=== PATIENT | female | born 1965 | race Caucasian/White ===

== ENCOUNTER 2022-01-03 12:00 | Emergency (ER) | payer OTHER, SELFPAY ==
[2022-01-03 12:13] VITALS: BP 127/85; PULSE 69; RESP 16; TEMP 37; O2SAT 98; BMI 24.3
--- NOTE | 2022-01-03 12:31 | W.ED.ABDPA2 ---
HPI - Abdominal Pain General: Chief Complaint: Abdominal Pain Stated Complaint: chest and abdomen pain, n/v Time Seen by Provider: 01/03/22 12:30 Source: patient Mode of arrival: ambulatory Limitations: no limitations History of Present Illness: 56-year-old female presents emergency room complaining of chest and abdominal pain. Began last night epigastric pain radiates up into the chest a little bit she had lots of nausea vomiting and diarrhea with that same time persisted throughout the night was persistent epigastric discomfort she also has little bit of left lower quadrant discomfort and pain now. She denied any hematochezia melena hematemesis coffee-ground emesis. No dysuria urgency or frequency no fever sweats or chills. She called her doctor's office they called in some ondansetron for her she took 1 tablet of that it significantly improved her nausea but did not relieve her pain. Failure previous abdominal surgery she has had is a hysterectomy. MD elicited complaint: abdominal pain Pertinent past history: none Onset (ago): hour(s) Pain Consistency: intermittent Location: Epigastric Severity: mild Quality: cramping Associated Symptoms: Denies bloating, chills, coffee ground emesis, constipation, diarrhea, dysuria, fever(s), hematochezia, hematemesis, melena, nausea and vomiting Review of Systems Const: Denies: fever(s), chills, body aches, change in appetite, fatigue or malaise ENMT: Denies: throat pain, ear or mastoid pain, nasal discharge or nasal congestion Card: Denies: chest pain, edema, dyspnea on exertion or orthopnea Resp: Denies: dyspnea, productive cough or non-productive cough GI: Denies: abdominal pain, nausea, vomiting, hematemesis, coffee ground emesis, diarrhea, constipation, bloating, hematochezia or melena : Denies: flank pain, difficulty voiding, dysuria, urinary frequency or urinary urgency Skin/Breast: Denies: rash or pruritus PFSH ED PFSH: Surgical History (Updated 01/10/22 @ 14:18 by Pablo Ely DO) History of breast biopsy History of colonoscopy History of hysterectomy History of tubal ligation Social History Smoking and tobacco status: never smoked Physical Exam Const: GENERAL APPEARANCE: cooperative and comfortable ORIENTATION/CONSCIOUSNESS: Yes awake, Yes oriented to person, Yes oriented to place and Yes oriented to time HENMT: COMMON NORMALS: normocephalic, atraumatic and hearing grossly normal bilaterally HEAD & SCALP: normocephalic and atraumatic Neck/C-Spine: COMMON NORMALS: no JVD Resp: COMMON NORMALS: normal respiratory effort, No retractions, No use of accessory muscles and clear to auscultation bilaterally AUSCULTATION: clear to auscultation bilaterally Cardio: COMMON NORMALS: no JVD, regular rate, regular rhythm and No murmurs present (Cardio) RATE: regular rate RHYTHM: regular rhythm GI: COMMON NORMALS: No hepatosplenomegaly present AUSCULTATION: Yes normoactive bowel sounds PALPATION: Yes Tenderness to palpation present (GI) Details: RUQ, No Guarding due to palpation present (GI) and Yes No hepatosplenomegaly present Extremity: COMMON NORMALS: normal to inspection, capillary refill normal, no clubbing, cyanosis or edema, no calf tenderness and no pedal edema Neuro: SENSORIUM/ORIENTATION: Yes oriented to person, Yes oriented to place and Yes oriented to time Skin: COMMON NORMALS: no rashes or lesions noted GENERAL SKIN EXAM: no rashes or lesions noted Course Vital Signs: Vital signs: Vital Signs Temperature 98.6 F 01/03/22 12:13 Pulse Rate 61 01/03/22 13:43 Respiratory Rate 16 01/03/22 14:07 Blood Pressure 127/78 01/03/22 13:43 Pulse Oximetry 99 01/03/22 13:43 MDM - Abdominal Pain Medical Decision Making Suspect patient has biliary colic. Liver functions and COVID ultrasound unremarkable. Discharge patient home bland diet antiemetics pain medications and will have her get a follow-up with general surgery tomorrow. Medical Records I reviewed the patient's medical records. Lab Data I reviewed the patient's lab results. : 01/03/22 12:40 01/03/22 12:40 Labs/Radiology: Radiology Impressions Abdomen/Pelvis CT 01/03/22 14:01 IMPRESSION: 1. Abnormal gallbladder. Findings consistent with acute cholecystitis. Gallstones were previously described on a prior ultrasound from 2010. Gallbladder ultrasound would be beneficial in confirming findings. 2. No bile duct dilatation. 3. No free fluid. Gallbladder Ultrasound 01/03/22 15:32 IMPRESSION: 1. Findings of acute cholecystitis. Numerous stones within a markedly thickened gallbladder. Gallbladder wall is edematous also on the recent CT. Suspect these changes are related to acute on chronic cholecystitis. Due to the marked wall gallbladder wall thickening the possibility of a gallbladder neoplasm should also be considered. 2. Normal common bile duct. Laboratory Results WBC 8.4 10^3/uL (4.0-10.0) 01/03/22 12:40 RBC 4.66 10^6/uL (4.1-5.3) 01/03/22 12:40 Hgb 14.3 g/dL (11.5-15.3) 01/03/22 12:40 Hct 44.1 % (37.0-47.0) 01/03/22 12:40 MCV 94.6 fl (81-99) 01/03/22 12:40 MCH 30.7 pg (28.0-34.0) 01/03/22 12:40 MCHC 32.4 g/dL (30.0-36.0) 01/03/22 12:40 RDW 11.9 % (12.1-15.1) L 01/03/22 12:40 Plt Count 175 10^3/cmm (130-400) 01/03/22 12:40 MPV 10.4 fL (7.4-10.4) 01/03/22 12:40 Neut % (Auto) 90.3 % 01/03/22 12:40 Lymph % (Auto) 7.1 % 01/03/22 12:40 [place] % (Auto) 2.1 % 01/03/22 12:40 Eos % (Auto) 0.1 % 01/03/22 12:40 Baso % (Auto) 0.2 % 01/03/22 12:40 Neut # (Auto) 7.60 10^3/uL (1.8-7.7) 01/03/22 12:40 Lymph # (Auto) 0.6 10^3/uL (0.8-4.8) L 01/03/22 12:40 [place] # (Auto) 0.2 10^3/uL (0.2-0.9) 01/03/22 12:40 Eos # (Auto) 0.0 10^3/uL (0.0-0.8) 01/03/22 12:40 Baso # (Auto) 0.0 10^3/uL (0.0-0.1) 01/03/22 12:40 Nucleated RBC % (auto) 0 % 01/03/22 12:40 Nucleated RBCs # 0.0 /100WBC 01/03/22 12:40 Sodium 139 mmol/L (136-145) 01/03/22 12:40 Potassium 4.2 mmol/L (3.5-5.1) 01/03/22 12:40 Chloride 104 mmol/L (98-107) 01/03/22 12:40 Carbon Dioxide 25 mmol/L (22-29) 01/03/22 12:40 Anion Gap 14.2 (5-19) 01/03/22 12:40 BUN 12 mg/dL (6-20) 01/03/22 12:40 Creatinine 0.7 mg/dL (0.5-0.9) 01/03/22 12:40 GFR Calculation 86.2 mL/min (90-130) L 01/03/22 12:40 Glucose 124 mg/dL (65-115) H 01/03/22 12:40 Calculated Osmolality 289 mOsm/kg (285-295) 01/03/22 12:40 Calcium 9.2 mg/dL (8.5-10.5) 01/03/22 12:40 Total Bilirubin 0.3 mg/dL (0.15-1.2) 01/03/22 12:40 AST 16 U/L (0-32) 01/03/22 12:40 ALT 13 U/L (0-33) 01/03/22 12:40 Alkaline Phosphatase 65 IU/L (35-105) 01/03/22 12:40 Total Protein 7.5 g/dL (6.6-8.7) 01/03/22 12:40 Albumin 4.6 g/dL (3.5-5.2) 01/03/22 12:40 Globulin 2.9 g/dL (1.3-4.6) 01/03/22 12:40 Urine Color Yellow (Yellow) 01/03/22 12:45 Urine Appearance Clear (CLEAR) 01/03/22 12:45 Urine pH 8 (5-7) H 01/03/22 12:45 Ur Specific [place] 1.010 (1.005-1.030) 01/03/22 12:45 Urine Protein Neg (Negative) 01/03/22 12:45 Urine Glucose (UA) Norm (Normal) 01/03/22 12:45 Urine Ketones Negative (Negative) 01/03/22 12:45 Urine Blood Neg (Negative) 01/03/22 12:45 Urine Nitrate Negative (Negative) 01/03/22 12:45 Urine Bilirubin Neg (Negative) 01/03/22 12:45 Prot Sulfosalicylic Acd Negative (Negative) 01/03/22 12:45 Urine Urobilinogen Norm mg/dL (Negative) 01/03/22 12:45 Ur Leukocyte Esterase Negative (Negative) 01/03/22 12:45 Urine RBC 0-4 /hpf (0-2) H 01/03/22 12:45 Urine WBC None /hpf (0-5) 01/03/22 12:45 Ur Squamous Epith Cells 0-4 /hpf (0-5) H 01/03/22 12:45 Ur Transition Epith Cell None /hpf 01/03/22 12:45 Ur Renal Epithelial Cell N /hpf 01/03/22 12:45 Amorphous Sediment Not Reportable 01/03/22 12:45 Urine Bacteria None /hpf (NONE) 01/03/22 12:45 Urine Mucus 1+ /hpf 01/03/22 12:45 Discharge Plan Discharge Patient Disposition: Home Clinical Impression: Biliary colic Condition: Stable Prescriptions: New hydrocodone-acetaminophen 5-325 mg tablet 1 tab PO Q6H PRN (Reason: pain) Qty: 20 0RF promethazine 25 mg tablet 25 mg PO Q6H PRN (Reason: nausea and vomiting) Qty: 20 0RF No Action amoxicillin-pot clavulanate 875-125 mg tablet 1 tab PO Q12H Qty: 28 0RF estradiol 1 mg tablet 1 mg PO DAILY 0RF ondansetron 4 mg tablet,disintegrating 4 mg PO Q8H PRN (Reason: Nausea) 0RF albuterol sulfate 90 mcg/actuation Hfa Aerosol Inhaler 1 - 2 puff INHALATION QID PRN (Reason: Shortness Of Breath) 0RF Discharge Orders: Discharge ED (Routine); Ordered 01/03/22 Ordered By: Pablo Ely Referrals: Colin Trevizo DO [Physician] - (Dr. Trevizo is at the [facility] office [facility]) Patient Instructions: [place] Diet - Adult, Biliary Colic (ED), Gallstones (ED), Abdominal Pain (ED), Opioid Safety Activity Restrictions/Additional Instructions: You have an appointment with Dr. Trevizo at 1115 tomorrow January 04, [address] [facility] Coding Level of Care Code ED Sanitation Superintendent for Chg Traci
--- NOTE | 2022-01-03 12:32 | ECG_ITS ---
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 Measurements Intervals [place] Rate: 68 P: 77 OK: 145 QRS: 73 QRSD: 88 T: 45 QT: 408 QTc: 435 Interpretive Statements SINUS RHYTHM POSSIBLE RIGHT VENTRICULAR CONDUCTION DELAY [RSR (QR) IN V1/V2] No previous ECG available for comparison Electronically Signed On 01-03-2022 17:25:17 CDT by Wander Short M.D. [email or web address] Marketing and Researchwvumedicine [email or web address]/store/OM/[id number]
[2022-01-03] MEDS: sodium chloride 0.9% 1,000 ML 999 ML IV (12:52)
[2022-01-03] MEDS: ondansetron 2 mg/ML SDV 2 mL 4 MG IVP (12:52)
[2022-01-03 13:05] LABS: Basophils % 0.2 %; Eosinophils % 0.1 %; Hematocrit 44.1 % (37.0-47.0); Hemoglobin 14.3 g/dL (11.5-15.3); Lymphocytes # 0.6 10^3/uL (0.8-4.8); Lymphocytes % 7.1 %; Mean Corpuscular HGB Conc 32.4 g/dL (30.0-36.0); Mean Corpuscular Hemoglobin 30.7 pg (28.0-34.0); Mean Corpuscular Volume 94.6 fl (81-99); Mean Platelet Volume 10.4 fL (7.4-10.4); Monocytes # 0.2 10^3/uL (0.2-0.9); Monocytes % 2.1 %; Neutrophils % 90.3 %; Nucleated Red Blood Cells % 0 %; Platelet Count 175 10^3/cmm (130-400); Red Blood Count 4.66 10^6/uL (4.1-5.3); Red Cell Distribution Width 11.9 % (12.1-15.1); White Blood Count 8.4 10^3/uL (4.0-10.0)
[2022-01-03 13:18] LABS: Alanine Aminotransferase 13 U/L (0-33); Albumin Level 4.6 g/dL (3.5-5.2); Alkaline Phosphatase 65 IU/L (35-105); Anion Gap 14.2 (5-19); Aspartate Amino Transferase 16 U/L (0-32); Blood Urea Nitrogen 12 mg/dL (6-20); Calcium 9.2 mg/dL (8.5-10.5); Carbon Dioxide 25 mmol/L (22-29); Chloride 104 mmol/L (98-107); Globulin 2.9 g/dL (1.3-4.6); Glomerular Filtration Rate 86.2 mL/min (90-130); Glucose 124 mg/dL (65-115); Osmolality Calculated 289 mOsm/kg (285-295); Potassium 4.2 mmol/L (3.5-5.1); Sodium 139 mmol/L (136-145); Total Bilirubin 0.3 mg/dL (0.15-1.2); Total Protein 7.5 g/dL (6.6-8.7)
[2022-01-03 13:35] LABS: Urine Appearance Clear (CLEAR); Urine Color Yellow (Yellow)
[2022-01-03 13:43] VITALS: BP 127/78; PULSE 61; RESP 16; O2SAT 99
[2022-01-03 13:45] LABS: Bilirubin Urine Neg (Negative); Blood Urine Neg (Negative); Glucose Urine UA Norm (Normal); Ketones Urine Negative (Negative); Leukocyte Esterase Urine Negative (Negative); Nitrate Urine Negative (Negative); Protein Urine Neg (Negative); Urobilinogen Urine Norm (Negative); pH Urine 8 (5-7)
[2022-01-03 13:46] LABS: Add Urine Microscopic? YES; Sulfosalicylic Acid Urine Negative (Negative)
[2022-01-03 13:47] LABS: Mucus Urine 1+ /hpf; RBC Urine 0-4 /hpf (0-2); Renal Epithelial Cells Urine N /hpf; Squamous Epithelial Cell Urine 0-4 /hpf (0-5)
[2022-01-03 13:48] LABS: Add Urine Culture? No
--- NOTE | 2022-01-03 14:01 | CT_ITS ---
WS: [id number] CT ABDOMEN AND PELVIS NONCONTRAST HISTORY: abd pain TECHNIQUE: Imaging performed through the abdomen and pelvis. Coronal and sagittal reformats are submi tted. All CT scans at [facility] use at least one of these dose optimization techniques: auto mated exposure control; mA and/or kV adjustment per patient size (includes targeted exams where dose is matched to clinical indication); or iterative reconstruction. DLP: 1315.78 mGy.cm COMPARISON: 10/05/2010 Lower thorax: Lung bases are clear. Visualized heart is normal. No hiatal hernia. Liver: Normal size liver. No mass or bile duct dilatation. Gallbladder: Abnormal gallbladder. Diffuse wall thickening with mild adjacent inflammation. Variable density within the gallbladder suggesting stones. Pancreas: Normal size and attenuation. Normal pancreatic duct. No pancreatitis or mass. Spleen: Normal. Adrenal glands: Normal. No mass. Right kidney: Normal size kidney with no mass or hydronephrosis. Left kidney: Normal size kidney with no mass or hydronephrosis. Aorta: Normal abdominal aorta, no aneurysm or atherosclerosis. No free fluid, intraperitoneal air or significant lymphadenopathy. GI tract: Normal appendix. No GI tract obstruction or diverticulosis. Abdominal wall: Very small umbilical hernia. Pelvis: No mass or adenopathy. Osseous structures: Unremarkable. CT/CT abdomen pelvis wo con [id number] IMPRESSION: 1. Abnormal gallbladder. Findings consistent with acute cholecystitis. Gallsto anshu were previously described on a prior ultrasound from 2010. Gallbladder ultr asound would be beneficial in confirming findings. 2. No bile duct dilatation. 3. No free fluid.
[2022-01-03 14:07] VITALS: RESP 16
[2022-01-03] MEDS: morphine 4 mg/mL SDV 1 mL IVP ×2 (14:07→16:33)
--- NOTE | 2022-01-03 15:32 | US_ITS ---
WS: [id number] RIGHT UPPER QUADRANT ULTRASOUND HISTORY: RUQ abd pain, cholelithiasis COMPARISON: 10/05/[address] 01/03/2022 Liver: 13.2 cm in length. Normal size liver. No bile duct dilatation or mass. Portal Vein: Normal hepatopetal flow with monophasic waveform. Gallbladder: Markedly abnormal gallbladder. There is diffuse wall thickening with a few cystic areas and fluid within the wall. The central gallbladder is contracted with numerous stones. Gallbladder wa ll thickening measures up to 1.6 cm. CBD: 0.4 cm Pancreas: Normal size and echogenicity. Right kidney: 10.5 cm in length. Normal size and echogenicity. No hydronephrosis or mass. Aorta and IVC: Unremarkable abdominal aorta and IVC. No ascites. US/US gall bladder [id number] IMPRESSION: 1. Findings of acute cholecystitis. Numerous stones within a markedly thickene d gallbladder. Gallbladder wall is edematous also on the recent CT. Suspect the se changes are related to acute on chronic cholecystitis. Due to the marked wal l gallbladder wall thickening the possibility of a gallbladder neoplasm should also be considered. 2. Normal common bile duct.
== END 2022-01-03 17:03 | disposition home or self-care (01) ==
PROVIDERS: Emergency Provider Family Medicine; PCP Family Medicine
DX: K80.66 Calculus of gallbladder and bile duct with acute and chronic cholecystitis without obstruction (principal); Z79.890 Hormone replacement therapy; Z79.891 Long term (current) use of opiate analgesic
CPT/HCPCS: 74176; 76705; 80053; 81001; 85025; 93005; 96361; 96374; 96375; 96376; 99285; J2270; J2405; J7030

== ENCOUNTER 2022-02-28 10:30 | Day surgery (SDC) | payer BC, SELFPAY ==
[2022-02-24 11:01] VITALS: BMI 23.6
[2022-02-28] VITALS (8 sets, daily range): BP systolic 96–123; BP diastolic 55–79; PULSE 52–75; RESP 14–20; TEMP 36.1–36.6; O2SAT 93–100
[2022-02-28] MEDS: sodium chloride 0.9% 1,000 ML 30 ML IV (11:02)
--- NOTE | 2022-02-28 11:05 | W.PM.OPSUD ---
Surgery/Procedure H&P Update DATE OF PROCEDURE: February 28, 2022 DATE H&P PERFORMED: 02/10/22 CHANGES TO PREVIOUS DOCUMENTATION: none PREOP DIAGNOSIS: Chronic Cholecystitis PLANNED PROCEDURE: Operation Date: 02/28/22 12:20 Proposed Procedures p lap tramaine 02890/K81.2(Not Applicable) - Colin Trevizo DO
--- NOTE | 2022-02-28 12:36 | ANES.PREANE2 ---
Pre-Anesthetic Assessment Height/Weight: Height 1.73 m Weight 70.307 kg Temp Pulse Resp BP Pulse Ox 97.1 F L 75 18 121/79 98 02/28/22 10:46 02/28/22 10:46 02/28/22 10:46 02/28/22 10:46 02/28/22 10:46 Preop Diagnosis: Chronic Cholecystitis Operation Date: 02/28/22 12:20 Proposed Procedures p lap tramaine 02320/K81.2(Not Applicable) - Colin Trevizo DO Familial anesthetic complications: None Was Beta Heather taken within 24 hours: N/A Was Clonidine taken within 24 hours: N/A Last intake: Intake Last Liquid Date 02/27/22 Last Liquid Time 21:00 Last Solid Date 02/27/22 Last Solid Time 21:00 Social No alcohol and No tobacco Exam alert, oriented x 3, clear to auscultation bilaterally and regular rate & rhythm Airway Mallampati: Class II Dentition: full GI cholecystitis Anesthetic Plan ASA status: 2 Anesthesia: General Risk of > 500 ml blood loss (7ml/kg in children): No Medications/Allergies Home Medications Medication Instructions Recorded Confirmed Last Taken Type hydrocodone 5 mg-acetaminophen 325 1 tab PO Q6H PRN #20 tab 01/03/22 02/28/22 01/10/22 Rx mg tablet fluticasone propionate 50 1 spray INTRANASAL ONCE g 02/10/22 02/28/22 02/27/22 History mcg/actuation nasal spray,suspension (Children's Flonase Allergy Relief) Allergies Allergy/AdvReac Type Severity Reaction Status Date / Time No Known Allergies Allergy Verified 02/28/22 10:39 Current Medications Generic Name Dose Route Start Last Admin Trade Name Freq PRN Reason Stop Dose Admin Sodium Chloride 1,000 mls @ 30 mls/hr 02/28/22 10:45 02/28/22 11:02 Sodium Chloride 0.9% IV 03/01/22 10:44 30 mls/hr .Q24H LARISA Administration PFSH Anesthesia Surgical History History of breast biopsy History of colonoscopy History of hysterectomy History of tubal ligation Social History Smoking and tobacco status: never smoked Data Anesthesia Cardiac Studies: No Data to Display
--- NOTE | 2022-02-28 13:48 | P.OP_ITS ---
Operative Report Date of procedure: February 28, 2022 Pre-op diagnosis: Preop Diagnosis Chronic Cholecystitis Post-op diagnosis: same Procedure done: Laparoscopic cholecystectomy Specimens removed/disposition: Gallbladder Surgeon: Dr. Colin Trevizo DO Estimated blood loss: 5 Complications: None apparent Brief History: 56-year-old female diagnosed with chronic cholecystitis. Laparoscopic cholecystectomy is indicated. Risks and benefits were explained and documented Procedure: Patient was wheeled into the operative room and placed on the OR table in a supine position. Abdomen was inspected prepped and draped in usual sterile fashion. Time-out was performed and all present were in agreement. A 15 blade scalp was used to make a stab incision in the left upper quadrant and intra- abdominal insufflation was achieved using a Veress needle. After localizing the tissue incisions were made and a 5 millimeter trocar was placed into the umbilicus as well as 2 in the right upper quadrant. A 12 millimeter trocar was placed in the epigastrium. Gallbladder was grasped and elevated. The triangle of [place] was carefully dissected using blunt dissection and electrocautery until the triangle of [place] clearly identified. The cystic duct was clipped proximally and double clipped distally. The duct was then ligated proximally. The cystic artery was doubly clipped and ligated. The gallbladder was then re moved from the liver bed using electrocautery. The gallbladder was removed from the abdomen using an Endo-Catch bag through the epigastric incision. The liver bed was inspected and no bleeding was seen. The abdomen was irrigated and suctioned. All ports removed. Skin was washed and dried. Incisions were closed with 3-0 and 4-O Vicryl in a subcuticular interrupted fashion. Skin glue was applied. Patient tolerated the procedure well.
--- NOTE | 2022-02-28 14:40 | ANE.PACU2 ---
Inpatient post-anesthesia follow up: Airway intact: Yes Vital signs: Temperature 97.0 F Pulse Rate 52 Respiratory Rate 16 Blood Pressure 122/74 Pulse Oximetry 96 Oxygen Delivery Me thod Room Air Oxygen Flow Rate 6 Fraction of Inspir ed Oxygen Hydration adequate: Yes Nausea and vomiting: No Pain level: 1 Mental status: Baseline
[2022-02-28] MEDS: HYDROcodone-acetaminophen 5-325 mg Tablet 1 TAB PO (15:20)
== END 2022-02-28 16:25 | disposition home or self-care (01) ==
PROVIDERS: PCP Family Medicine; Visit Provider Surgery
PROC: 0FT44ZZ Resection of Gallbladder, Percutaneous Endoscopic Approach (ICD-10-PCS; CPT 47562; principal; 2022-02-28 12:20)
DX: K80.10 Calculus of gallbladder with chronic cholecystitis without obstruction (principal)
CPT/HCPCS: 47562; 88304; J1100; J1170; J1200; J2250; J2405; J2704; J2710; J3490; J7030

== ENCOUNTER → 2022-06-01 15:03 | Outpatient (BNVA) | payer BC, SELFPAY | PROVIDERS: PCP Family Medicine; Visit Provider Family Medicine | DX: Z00.00 Encounter for general adult medical examination without abnormal findings (principal) | CPT/HCPCS: 80053; 80061; 84443; 85025 ==

== ENCOUNTER → 2022-06-06 14:27 | Outpatient (BNVA) | payer BC, SELFPAY | PROVIDERS: PCP Family Medicine; Visit Provider Family Medicine | DX: M54.50 Low back pain, unspecified (principal); N39.0 Urinary tract infection, site not specified; K81.2 Acute cholecystitis with chronic cholecystitis | CPT/HCPCS: 81000; 87086 ==

== ENCOUNTER → 2023-08-01 09:00 | Outpatient (BNVA) | payer OTHER, SELFPAY | PROVIDERS: PCP Family Medicine; Visit Provider Family Medicine | DX: Z00.00 Encounter for general adult medical examination without abnormal findings (principal); Z79.890 Hormone replacement therapy; E03.9 Hypothyroidism, unspecified; Z13.6 Encounter for screening for cardiovascular disorders | CPT/HCPCS: 80053; 80061; 84443; 85025 ==

== ENCOUNTER → 2023-09-06 12:42 | Outpatient (BNVA) | payer OTHER, SELFPAY | PROVIDERS: PCP Family Medicine; Visit Provider Family Medicine | DX: R05.9 Cough, unspecified (principal); M99.08 Segmental and somatic dysfunction of rib cage | CPT/HCPCS: 71046 ==

== ENCOUNTER → 2024-08-07 08:54 | Outpatient (BNVA) | payer OTHER, SELFPAY | PROVIDERS: PCP Family Medicine; Visit Provider Family Medicine | DX: Z00.00 Encounter for general adult medical examination without abnormal findings (principal); Z79.890 Hormone replacement therapy; E03.9 Hypothyroidism, unspecified | CPT/HCPCS: 80053; 80061; 82607; 84443 ==